=== PATIENT | female | born 2005 | race African-American/Black ===

== ENCOUNTER 2023-03-11 12:40 | Emergency (ER) | payer SELFPAY ==
[~2023-03-11] VITALS: Ht 170.2 cm; Wt 87.0 kg
[2023-03-11 13:08] VITALS: O2SAT 99
[2023-03-11] MEDS ORDERED: AMOX1TAB16 MT (15:13)
[2023-03-11] MEDS ORDERED: PSEU-224 MT (15:15)
[2023-03-11] MEDS ORDERED: ONDANSETRON 4MG ODT PO ONE (15:45)
[2023-03-11 16:38] VITALS: BP 117/74; PULSE 87; RESP 19; TEMP 98.4
== END 2023-03-11 16:39 | disposition home or self-care (01) ==
LOC: ER 12:40
DX: H66.92 Otitis media, unspecified, left ear (principal)
CPT/HCPCS: 99283; Q0162